=== PATIENT | female | born 1995 | race Caucasian/White ===

== ENCOUNTER 2018-03-13 20:22 | Inpatient (IN) | payer BC ==
[2018-03-13] VITALS (14 sets, daily range): BP systolic 103–136; BP diastolic 54–77; PULSE 76–106; TEMP 98.8
[~2018-03-13] VITALS: Ht 172.7 cm; Wt 93.2 kg
[~2018-03-13 20:22] MED LIST: MOTRIN 600600 MG/TAB PO; PERCOCET 325 MG1 TA2 PO; PRENATAL1 TA7 PO; SENOKOT S 50 MG1 TAB PO; TUMS500 MG; ZANTAC 7575 MG PO
[2018-03-13 21:19] LABS: BASO % 0.1 % (0.0-2.0); EOS # 0.2 (0.0-0.7); GRAN # 10.8 (1.4-6.5); GRAN % 73.9 % (42.2-75.2); HEMOGLOBIN 11.4 g/dl (12.5-16.0); LYMPH # 2.4 (1.2-3.4); LYMPH % 16.1 % (20.0-51.0); MEAN CELL VOLUME 85 fl (80.0-100.0); MEAN CORPUSCULAR HEMOGLOBIN 28 pg (27.0-31.0); MEAN CORPUSCULAR HGB CONC 33 g/dl (33.0-37.0); MEAN PLATELET VOLUME 10.7 fl (7.4-10.4); MONO # 1.2 (0.1-0.6); MONO % 7.9 % (1.7-9.3); PLATELET COUNT 235 K/mm3 (130-400); RED BLOOD COUNT 4.03 M/mm3 (4.10-5.30); REDCELL DISTRIBUTION WIDTH-CV 13.6 % (11.5-14.5)
[2018-03-13 21:22] LABS: HEMATOCRIT 34.1 % (37.0-47.0)
[2018-03-13] MEDS ORDERED: ZANTAC 150MG T150 MG PO (21:22)
[2018-03-14] VITALS: BP 117/61; PULSE 72
[2018-03-14 01:00] VITALS: BP 110/58; PULSE 85
[2018-03-14 02:45] VITALS: BP 108/64; PULSE 82
[2018-03-14 09:00] VITALS: BP 110/65; PULSE 73; TEMP 97.8
[2018-03-14 13:20] VITALS: BP 109/63; PULSE 72; TEMP 97.5
[2018-03-14] MEDS ORDERED: PERCOCET 325 MG1 TA2 PO (16:11)
[2018-03-14] MEDS ORDERED: MOTRIN 800800 MG/TAB PO (16:11)
[2018-03-14 17:09] VITALS: BP 111/65; PULSE 73
[2018-03-15 08:06] VITALS: BP 106/83; PULSE 83; TEMP 98.2
== END 2018-03-15 12:56 | disposition home or self-care (01) | DRG 775 ==
LOC: LDRO 20:22 → LDR 20:53 → LDRO 20:54 → LDR 20:57 → OB 03-14 02:45
PROVIDERS: Obstetrics & Gynecology
PROC: 10E0XZZ Delivery of Products of Conception, External Approach (ICD-10-PCS; principal; 2018-03-13)
PROC: 0HQ9XZZ Repair Perineum Skin, External Approach (ICD-10-PCS; 2018-03-13)
DX: O70.0 First degree perineal laceration during delivery (principal); Z3A.39 39 weeks gestation of pregnancy; Z37.0 Single live birth
CPT/HCPCS: J2590; J2795; J7120

== ENCOUNTER → 2019-12-25 | Outpatient (CLI) | payer BC ==
[~2019-12-25] MED LIST changes: +CLARITIN 1010 MG/TAB PO; +MOTRIN 800800 MG/TAB PO; +NATURAL IRON65 MG; +PRENATAL TABLET PO; +ZANTAC 150MG T150 MG PO
== END ==
LOC: COL.LAB
DX: Z20.828 Contact with and (suspected) exposure to other viral communicable diseases (principal)

== ENCOUNTER 2019-12-29 07:16 | Inpatient (IN) | payer BC ==
[2019-12-29] VITALS (25 sets, daily range): BP systolic 102–145; BP diastolic 55–88; PULSE 81–125; TEMP 97.6–98.1
[~2019-12-29] VITALS: Ht 172.7 cm; Wt 101.4 kg
[~2019-12-29 07:16] MED LIST changes: -CLARITIN 1010 MG/TAB PO; -NATURAL IRON65 MG; -PRENATAL TABLET PO
[2019-12-29] MEDS ORDERED: NATURAL IRON65 MG (07:43)
[2019-12-29] MEDS ORDERED: PRENATAL TABLET PO (07:43)
[2019-12-29] MEDS ORDERED: CLARITIN 1010 MG/TAB PO (07:44)
--- NOTE | 2019-12-29 08:00 | NUR ---
0730- Pt arrives on unit ambulatory for scheduled inducation with , Nikko. 0735- Pt into bed, EFM and TOCO on and tracing. VSS. Assessment completed. Pt denies regular UCs, VB, or LOF. +FM. Pt denies questions about induction process. 0750- IV start in LW without difficulty or complications, Labs obtained per MD order, IVF bolus initiated. Pt tolerated well. Consent forms explained and signed. Call light within reach.
[2019-12-29 08:39] LABS: BASO % 0.2 % (0.0-2.0); EOS # 0.2 (0.0-0.7); EOS % 1.8 % (0-4.0); GRAN # 9.5 (1.4-6.5); GRAN % 75.4 % (42.2-75.2); HEMATOCRIT 36.9 % (37.0-47.0); HEMOGLOBIN 12.3 g/dl (12.5-16.0); LYMPH # 1.8 (1.2-3.4); LYMPH % 14.2 % (20.0-51.0); MEAN CELL VOLUME 91 fl (80.0-100.0); MEAN CORPUSCULAR HEMOGLOBIN 30 pg (27.0-31.0); MEAN CORPUSCULAR HGB CONC 33 g/dl (33.0-37.0); MEAN PLATELET VOLUME 10.5 fl (7.4-10.4); MONO # 0.9 (0.1-0.6); PLATELET COUNT 208 K/mm3 (130-400); RED BLOOD COUNT 4.05 M/mm3 (4.10-5.30); REDCELL DISTRIBUTION WIDTH-CV 13.6 % (11.5-14.5)
--- NOTE | 2019-12-29 10:30 | NUR ---
1024- ROSA M Barboza at bedside. Pt repositioned to sitting on side of bed for epidural placement. O2 sat monitor on and tracing. FHR tracing intermittently due to maternal position. 1029- Single shot, see anesthesia record. 1034- Pt assisted to semi-fowlers with WL. EFM and TOCO adjusted and tracing. This RN remains at bedside.
--- NOTE | 2019-12-29 11:51 | NUR ---
1145- Dr Hoyos at bedside. Pt and room prepped for delivery. Waqar, nursery RN and Nara, nursery RN at bedside. O2 sat monitor off per Pt request, Okayed by . 1147- Pt begins pushing with UCs. 1151- of viable female infant. Spontaneous, crying noted. to mother's abd where dried and stimulated. Tended to by Nursery staff. Pitocin off. Cord blood obtained by . 1153- Spontaneous delivery of placenta. Pitocin restarted at 333ml/hr. Fundus massaged to firm by , moderate/heavy bleeding noted with clots, improved with massage. Laceration repaired by . Pericare compelted, Ice pack and new chux under Pt. Pt doing well, pain controled, skin-2-skin.
--- NOTE | 2019-12-29 14:10 | NUR ---
1410- Pt ambulates to bathroom with standby assist x1. Unable to void, encouraged to increase water intake. Pericare completed and explained. Bleeding precautions given. Peripad and underwear on, gown changed. Pt ambulates to PP room independently. Oriented to room, call light within reach. Pt tolerated well.
[2019-12-29] MEDS ORDERED: MOTRIN 800800 MG/TAB PO (20:04)
[2019-12-30 00:10] VITALS: BP 108/57; PULSE 92; TEMP 97.6
[2019-12-30 04:40] VITALS: BP 114/57; PULSE 94
[2019-12-30 09:05] VITALS: BP 111/69; PULSE 93; TEMP 97.8
== END 2019-12-30 15:00 | disposition home or self-care (01) | DRG 807 ==
LOC: OB 07:16 → LDR 07:27 → OB 10:18
PROVIDERS: ADMIT Obstetrics & Gynecology
PROC: 10E0XZZ Delivery of Products of Conception, External Approach (ICD-10-PCS; principal; 2019-12-29)
PROC: 3E033VJ Introduction of Other Hormone into Peripheral Vein, Percutaneous Approach (ICD-10-PCS; 2019-12-29)
PROC: 10907ZC Drainage of Amniotic Fluid, Therapeutic from Products of Conception, Via Natural or Artificial Opening (ICD-10-PCS; 2019-12-29)
PROC: 0HQ9XZZ Repair Perineum Skin, External Approach (ICD-10-PCS; 2019-12-29)
DX: O99.02 Anemia complicating childbirth (principal); Z37.0 Single live birth; O76 Abnormality in fetal heart rate and rhythm complicating labor and delivery; Z3A.39 39 weeks gestation of pregnancy; O70.0 First degree perineal laceration during delivery; O69.81X0 Labor and delivery complicated by cord around neck, without compression, not applicable or unspecified
CPT/HCPCS: J2590; J2795; J7120